=== PATIENT | male | born 1945 | race Caucasian/White ===

== ENCOUNTER 2024-03-23 08:12 | Day surgery (SDC) | payer MEDICARE, OTHER, SELFPAY ==
[2024-03-23] VITALS (12 sets, daily range): BP systolic 105–183; BP diastolic 63–112; BMI 28.9
[2024-03-23] MEDS: LOW STRENGTH ASPIRIN 81 MG PO (08:50)
[2024-03-23] MEDS: NSS 272 ML IV (08:50)
[2024-03-23 09:00] LABS: Glucose - Point of Care 162 mg/dl (70-99)
--- NOTE | 2024-03-23 11:21 | ITS.CL.CATH ---
[facility] - Catheterization
Cardiac Catheterization
Procedure Report:
CARDIAC CATHETERIZATION REPORT
Date of Procedure: 03/23/2024
Referring: Vance Linder MD
Indication: Abnormal preop stress test in patient with known CAD including multiple prior PCI's
�
HEMODYNAMIC DATA
AO: 189/96
LV: 189/22
�
LEFT VENTRICULOGRAPHY: Normal left ventricular wall motion with EF 64%
�
CORONARY ANGIOGRAPHY
Dominance: Right
Left Main: Mild tapering
LAD: There are widely patent proximal and mid LAD stents. There is 30% mid LAD stenosis proximal to the takeoff of the second diagonal branch and otherwise trivial luminal irregularities in the LAD
Circumflex: There is 30% ostial circumflex stenosis. There is focal 60% stenosis in the mid circumflex within the remotely placed stent just distal to the takeoff of the medium sized OM 2. The proximal circumflex stent placed in 2019 is widely
patent with no restenosis. The remainder the circumflex system has mild luminal irregularities.
RCA: Tandem 30 and 40% proximal to mid RCA stenoses with otherwise mild luminal irregularities
�
Closure Device: None-the procedure was performed via the right radial artery. The Delmer's test was normal prior to the procedure.
�
Radiation (mGy): 296
DAP (cm2.Gy): 23.2
Fluoroscopy time: 2.3 minutes
�
CONCLUSIONS
1:�Systemic hypertension
2:�Elevated LVEDP
3. Normal left ventricular function with EF 64%
4. Mild residual CAD with multiple patent stents
5. Recommend proceeding with surgery. The patient will be at significant risk for stent thrombosis if aspirin is withheld. Recommend proceeding on aspirin therapy. We will not resume Xarelto as his surgery is planned for 03/25
�
�
Copy to: Vance Linder MD, Shanna Chavez,
�
Coy Santana MD, [facility], [facility]
[2024-03-23] MEDS: NSS 1000 IV (13:21)
== END 2024-03-23 13:45 | disposition home or self-care (01) ==
LOC: CATH 08:12
PROVIDERS: ATTENDING PHYSICIAN Internal Medicine Cardiovascular Disease; FAMILY PHYSICIAN Family Medicine; OTHER PHYSICIAN Internal Medicine Clinical Cardiac Electrophysiology
DX: I25.10 Atherosclerotic heart disease of native coronary artery without angina pectoris (principal); Z95.5 Presence of coronary angioplasty implant and graft; I10 Essential (primary) hypertension; E78.5 Hyperlipidemia, unspecified; E11.9 Type 2 diabetes mellitus without complications; I48.21 Permanent atrial fibrillation; I34.0 Nonrheumatic mitral (valve) insufficiency; Z79.82 Long term (current) use of aspirin; Z79.84 Long term (current) use of oral hypoglycemic drugs; Z79.01 Long term (current) use of anticoagulants
CPT/HCPCS: 82962; 93458; C1769; C1894; Q9967